=== PATIENT | female | born 1960 | race Caucasian/White ===

== ENCOUNTER 2017-09-26 18:49 | Emergency (ER) | payer OTHER ==
[~2017-09-26] VITALS: Ht 154.9 cm; Wt 63.5 kg
[2017-09-26] MEDS ORDERED: SYNTHROID50 MCG PO (19:02)
== END 2017-09-26 21:36 | disposition home or self-care (01) ==
LOC: ER 18:49
DX: J06.9 Acute upper respiratory infection, unspecified (principal); M54.5 Low back pain